=== PATIENT | female | born 1960 | race Caucasian/White ===

== ENCOUNTER 2018-02-08 08:46 | Emergency (ER) | payer BC ==
[~2018-02-08] VITALS: Ht 160 cm; Wt 51.3 kg
[~2018-02-08 08:46] MED LIST: ATIVAN0.5 MG PO; CYCLOBENZAPRINE5 MG PO; DOMPERIDONE PO; INDOCIN50 MG PO; LORAZEPAM0.5 MG PO; MIRTAZAPINE15 MG PO; NATURE'S TEARS15 ML BOTH EYES; PRILOSEC40 MG PO; TRAMADOL HCL50 MG PO; TRAZODONE HCL100 MG PO; TYLENOL EXTRA500 MG; TYLENOL EXTRA500 MG PO; ZOLOFT25 MG PO; ZOLOFT50 MG PO; ZOLPIDEM TARTRAT5 MG PO
[2018-02-08 10:36] LABS: BASOPHIL (%) 0.6 % (0-1); BASOPHIL COUNT 0.1 K/uL (0-0.1); EOSINOPHIL COUNT 0.1 K/uL (0-0.3); HEMATOCRIT 40.4 % (36.0-46.0); HEMOGLOBIN 13.6 G/DL (11.9-15.5); IMMATURE GRANULOCYTE (%) 0.3 % (0.0-0.7); LYMPHOCYTE (%) 21.1 % (15-42); LYMPHOCYTE COUNT 1.8 K/uL (1.0-2.8); MCH 29.2 PG (29.0-34.0); MCHC 33.7 G/DL (30.0-36.0); MCV 86.7 FL (83-99); MONOCYTE (%) 5.7 % (3-12); MONOCYTE COUNT 0.5 K/uL (0-0.8); NEUTROPHIL (%) 71.3 % (45-76); NEUTROPHIL COUNT 6.2 K/uL (1.8-6.4); PLATELET COUNT 367 K/uL (156-360); RBC DIS.WIDTH-CV 12.4 % (11.8-14.6); RBC DIS.WIDTH-SD 39.2 % (39-53); RED BLOOD COUNT 4.66 M/uL (3.80-5.20); WHITE BLOOD COUNT 8.7 K/uL (4.1-10.2)
[2018-02-08 10:48] LABS: ALBUMIN 3.9 g/dL (3.2-4.8); CHLORIDE 109 mEq/L (99-109); POTASSIUM 3.9 mEq/L (3.7-5.4); SODIUM 142 mEq/L (136-147)
[2018-02-08 10:49] LABS: D-DIMER ELISA < 150.00 ng/mLDDU (<230)
[2018-02-08 10:50] LABS: GLUCOSE 111 mg/dL (70-99)
[2018-02-08 10:51] LABS: TOTAL PROTEIN 6.8 g/dL (6.4-8.3)
[2018-02-08 10:52] LABS: TOTAL BILIRUBIN 0.9 mg/dL (0.0-1.0)
[2018-02-08 10:54] LABS: ALKALINE PHOSPHATASE 102 IU/L (3-129); CREATININE 0.8 mg/dL (0.6-1.3); GFR ESTIMATE (CALCULATED) > 59 mL/min/
[2018-02-08 10:55] LABS: UREA NITROGEN (BUN) 10 mg/dL (9-23)
[2018-02-08 10:56] LABS: AST (GOT) 16 IU/L (2-34)
[2018-02-08 10:57] LABS: ALT (GPT) 14 IU/L (3-49)
[2018-02-08 10:58] LABS: LIPASE 14 U/L (1.0-51.0); TROP-I INTERPRETATION NEGATIVE; TROPONIN-I < 0.01 ng/mL (0.0-0.30)
[2018-02-08] MEDS ORDERED: PERCOCET 5/31 TABLET PO (11:04)
[2018-02-08] MEDS ORDERED: SKELAXIN800 MG PO (11:04)
[2018-02-08] MEDS ORDERED: AMBIEN10 MG PO (11:05)
[2018-02-08] MEDS ORDERED: ASPIRIN325 MG PO (11:05)
[2018-02-08 13:02] LABS: TROP-I INTERPRETATION NEGATIVE; TROPONIN-I < 0.01 ng/mL (0.0-0.30)
[2018-02-08 13:40] VITALS: BP 105/71
== END 2018-02-08 13:41 | disposition home or self-care (01) ==
LOC: EME 08:46
PROVIDERS: Emergency Medicine
DX: R07.9 Chest pain, unspecified (principal); F41.9 Anxiety disorder, unspecified; K21.9 Gastro-esophageal reflux disease without esophagitis; K58.9 Irritable bowel syndrome, unspecified; K31.84 Gastroparesis; F32.9 Major depressive disorder, single episode, unspecified; Z86.711 Personal history of pulmonary embolism
CPT/HCPCS: 71046; 80053; 83690; 84484; 85025; 85379; 93005; 99281; 99285

== ENCOUNTER 2018-03-01 15:07 | Emergency (ER) | payer BC ==
[~2018-03-01] VITALS: Ht 157.5 cm; Wt 50.0 kg
[~2018-03-01 15:07] MED LIST changes: +AMBIEN10 MG PO; +ASPIRIN325 MG PO; +PERCOCET 5/31 TABLET PO; +SKELAXIN800 MG PO
[2018-03-01 16:35] LABS: HEMATOCRIT 38.8 % (36.0-46.0); MCH 29.2 PG (29.0-34.0); MCHC 33.5 G/DL (30.0-36.0); MCV 87.2 FL (83-99); PLATELET COUNT 374 K/uL (156-360); RBC DIS.WIDTH-CV 12.9 % (11.8-14.6); RBC DIS.WIDTH-SD 40.8 % (39-53); RED BLOOD COUNT 4.45 M/uL (3.80-5.20)
[2018-03-01 16:44] LABS: CHLORIDE 105 mEq/L (99-109); POTASSIUM 3.9 mEq/L (3.7-5.4); SODIUM 140 mEq/L (136-147)
[2018-03-01 16:46] LABS: GLUCOSE 96 mg/dL (70-99); TOTAL PROTEIN 6.8 g/dL (6.4-8.3)
[2018-03-01 16:48] LABS: TOTAL BILIRUBIN 0.7 mg/dL (0.0-1.0)
[2018-03-01 16:49] LABS: SERUM ETHYL ALCOHOL < 10 mg/dL
[2018-03-01 16:50] LABS: CREATININE 0.8 mg/dL (0.6-1.3); GFR ESTIMATE (CALCULATED) > 59 mL/min/
[2018-03-01 16:51] LABS: ALKALINE PHOSPHATASE 105 IU/L (3-129); AST (GOT) 16 IU/L (2-34)
[2018-03-01 16:52] LABS: UREA NITROGEN (BUN) 10 mg/dL (9-23)
[2018-03-01 16:53] LABS: SALICYLATE < 5.0 MG/DL (15-30)
[2018-03-01 16:54] LABS: ACETAMINOPHEN (TYLENOL) < 10 mcg/mL (10-30); ALT (GPT) 12 IU/L (3-49)
[2018-03-01 19:52] LABS: COCAINE NEGATIVE (150 ng/mL); METHAMPHETAMINE NEGATIVE (500 ng/mL); OPIATES (MORPHINE) PRESUMPTIVE POSITIVE (100 ng/mL); PHENCYCLIDINE NEGATIVE (25 ng/mL); THC CANNABINOIDS NEGATIVE (50 ng/mL)
[2018-03-01 19:53] LABS: AMPHETAMINE NEGATIVE (500 ng/mL); BARBITURATES NEGATIVE (200 ng/mL); BENZODIAZEPINES PRESUMPTIVE POSITIVE (150 ng/mL); BUPRENORPHINE NEGATIVE (10 ng/mL); METHADONE NEGATIVE (200 ng/mL); OXYCODONE NEGATIVE (100 ng/mL); PROPOXYPHENE NEGATIVE (300 ng/mL); TRICYCLIC ANTIDEPRESSANTS PRESUMPTIVE POSITIVE (300 ng/mL)
[2018-03-01 20:22] LABS: BENZODIAZEPINES, URINE SCREEN Negative (200 ng/mL)
[2018-03-01 21:01] VITALS: BP 122/80
== END 2018-03-01 21:06 ==
LOC: EME 15:07
PROVIDERS: Emergency Medicine
DX: F32.9 Major depressive disorder, single episode, unspecified (principal); R45.851 Suicidal ideations; K21.9 Gastro-esophageal reflux disease without esophagitis; K58.9 Irritable bowel syndrome, unspecified; F41.9 Anxiety disorder, unspecified; Z79.82 Long term (current) use of aspirin; Z79.891 Long term (current) use of opiate analgesic; Z87.19 Personal history of other diseases of the digestive system
CPT/HCPCS: 80053; 84999; 85027; 90837; 93005; 99281; 99284; G0480